=== PATIENT | male | born 1985 | race African-American/Black ===

== ENCOUNTER 2022-05-20 11:54 | Emergency (ER) | payer OTHER ==
[2022-05-20 14:47] LABS: CARBON DIOXIDE,CO2 24.8 mmol/L (21.0-32.0); POTASSIUM,K 6.9 mmol/L (3.5-5.1)
[2022-05-20] MEDS ORDERED: Sodium Chloride 0.9% 1,000 ML IV ONE (15:06)
[2022-05-20] MEDS ORDERED: Insulin Regular, Human 100 Units/ML 10 ML Vial IVPUSH ONE (15:09)
[2022-05-20] MEDS ORDERED: 50% Dextrose in Water 50 ML Syringe IVPUSH PRN (15:09)
[2022-05-20] MEDS ORDERED: Glucagon,Human Recombinant 1 MG Vial IM PRN (15:09)
[2022-05-20] MEDS ORDERED: Albuterol 0.083% 2.5 MG/3 ML Neb Soln NEB ONE (15:13)
[2022-05-20] MEDS ORDERED: Calcium Gluconate 10% 1 GM/10 ML SDV IVPUSH ONE (15:14)
[2022-05-20] MEDS ORDERED: Furosemide 40 MG/4 ML VIAL IVPUSH ONE (15:59)
[2022-05-20 17:42] LABS: CARBON DIOXIDE,CO2 26.6 mmol/L (21.0-32.0); POTASSIUM,K 4.9 mmol/L (3.5-5.1)
== END 2022-05-20 17:47 | disposition left against medical advice (07) ==
LOC: MW.ED 11:54
DX: E87.5 Hyperkalemia (principal); F17.210 Nicotine dependence, cigarettes, uncomplicated; Z20.822 Contact with and (suspected) exposure to COVID-19
CPT/HCPCS: 36415; 80048; 80053; 81001; 82947; 84132; 85025; 87635; 93005; 96361; 96374; 96375; 99285; J0610; J1940; J7030; J1815-GY; U0002